=== PATIENT | female | born 1950 | race Caucasian/White ===

== ENCOUNTER 2018-11-12 05:06 | Emergency (ER) | payer MEDICARE, OTHER ==
[~2018-11-12] VITALS: Ht 160 cm; Wt 68.0 kg
[~2018-11-12 05:06] MED LIST: ESTRACE0.5 MG PO
--- OUTSIDE RECORDS SUMMARY | 2018-11-12 05:09 | XMS REPORT | Clinical Summary ---
Author Author [facility] Address Unknown Phone Unavailable Care Team Providers Care Continuous Drier Helper Name Role Phone Roberto Hardy MD PCP Allergies No Known Allergies Medications Not on file Active Problems Not on file Encounters Care Team Description Date Type Specialty Amparo Rose MD Visit for screening mammogram 01/09/2018 Hospital Encounter Amparo Rose MD Visit for screening mammogram (Primary Dx) 01/02/2018 Outside Orders Central Scheduling after 11/11/2017 Social History Date Tobacco Use Types Packs/Day Years Used Never Assessed Sex Assigned at Date Recorded Not on file Industry Job Start Date Occupation Not on file Not on file Not on file Travel End Travel History Travel Start No recent travel history available. Last Filed Vital Signs Not on file Plan of Treatment Not on file Procedures Comments Procedure Name Priority Date/Time Associated Diagnosis MM DIGITAL MAMMO SCREEN Routine 01/09/2018 IMPLANT BILAT 11:26 AM CDT after 11/11/2017 Results * MM digital mammo screen implant bilat (01/09/2018 11:26 AM CDT) Specimen Narrative Performed At RIS #[id number] - MM, DIGITAL, MAMMO, SCREENING, IMPLANT, BILATERAL INCLUDING CAD BILATERAL DIGITAL SCREENING MAMMOGRAM WITH CAD WITH AUGMENTATION: 01/09/2018 Comparison is made to exams dated:12/03/2016 mammogram - [facility], 01/21/2014 mammogram, and 02/01/2014 mammogram. There are scattered fibroglandular elements in both breasts that could obscure a lesion on mammography. Current study was also evaluated with a Computer Aided Detection (CAD) system. There are bilateral retroglandular silicone implants which may obscure pathology. No significant masses, calcifications, or other findings are seen in either breast. There has been no significant interval change. IMPRESSION: BENIGN There is no mammographic evidence of malignancy. A 1 year screening mammogram is recommended.The exam was reviewed by a staff physician. madeline Campbell M.D./:01/09/2018 13:57:06 Normal Exam Mammogram BI-RADS: 2 Benign G0202 Procedure Note Interface, External Ris In - 01/09/2018 3:30 PM CDT #[id number] - MM, DIGITAL, MAMMO, SCREENING, IMPLANT, BILATERAL INCLUDING CAD BILATERAL DIGITAL SCREENING MAMMOGRAM WITH CAD WITH AUGMENTATION: 01/09/2018 Comparison is made to exams dated: 12/03/2016 mammogram - [facility], 01/21/2014 mammogram, and 02/01/2014 mammogram. There are scattered fibroglandular elements in both breasts that could obscure a lesion on mammography. Current study was also evaluated with a Computer Aided Detection (CAD) system. There are bilateral retroglandular silicone implants which may obscure pathology. No significant masses, calcifications, or other findings are seen in either breast. There has been no significant interval change. IMPRESSION: BENIGN There is no mammographic evidence of malignancy. A 1 year screening mammogram is recommended. The exam was reviewed by a staff physician. madeline Green M.D., M.D./:01/09/2018 13:57:06 Normal Exam Mammogram BI-RADS: 2 Benign G0202 Performing Organization Address City/State/Zipcode Phone Number [facility] after 11/11/2017 Insurance Payer Benefit Subscriber ID Type Phone Address Plan / Group HUMANA - MEDICARE MGD HUMANA xxxxxxxxx Maps CARE MEDICARE Contracted ADV
--- OUTSIDE RECORDS SUMMARY | 2018-11-12 05:09 | XMS REPORT ---
Author Author [facility] Address Unknown Phone Unavailable Care Team Providers Care Household Worker Name Role Phone PATRICE RUIZ Unavailable Unavailable Problems This patient has no known problems. Allergies, Adverse Reactions, Alerts This patient has no known allergies or adverse reactions. Medications This patient has no known medications. Results Test Description Test Time Test Comments Text Results Atomic Results Result Comments MM, DIGITAL, MAMMO, SCREENING, IMPLANT, BILATERAL INCLUDING CAD 2018-01-09 13:57:00 Reason for Exam:->Z12.31 #[id number] - MM, DIGITAL, MAMMO, SCREENING, IMPLANT, BILATERAL INCLUDING CADBILATERAL DIGITAL SCREENING MAMMOGRAM WITH CAD WITH AUGMENTATION: 01/09/2018Comparison is made to exams dated: 12/03/2016 [facility], 01/21/2014 mammogram, and 02/01/2014 mammogram. There are scattered fibroglandular elements in both breasts that could obscure a lesion on mammography. Current study was also evaluated with a Computer Aided Detection (CAD) system. There are bilateral retroglandular silicone implants which may obscure pathology. No significant masses, calcifications, or other findings are seen in either breast. There has been no significant interval change. IMPRESSION: BENIGNThere is no mammographic evidence of malignancy. A 1 year screening mammogram is recommended. The exam was reviewed by a staff physician. Raji Mckinney M.D.[facility],dwd/:01/09/2018 13:57:06 Normal Exam Mammogram BI-RADS: 2 Benign G0202 -CREATININE 2016-12-14 13:43:00 POC-CREATININE (BEAKER) (test rwpv=[id number]) 0.5 mg/dL 0.6-1.3 TESTED AT [facility] [address] [facility] [id number] POC-EGFR (CORRINE) (test vkiy=[id number]) 124 mL/min/1.73M2
--- OUTSIDE RECORDS SUMMARY | 2018-11-12 05:09 | XMS REPORT | Clinical Summary ---
Author Author [facility] Address Unknown Phone Unavailable Care Team Providers Care Transcript Clerk Name Role Phone Roberto Hardy MD PCP Allergies Comments Active Allergy Reactions Severity Noted Date Morphine 02/17/2018 Sulfamethoxazole 02/17/2018 Medications End Date Status Medication Sig Dispensed Refills Start Date Active estradiol (ESTRACE) 1 MG Take 1 mg by 0 tablet mouth. 2 Active ciprofloxacin-dexamethaso Ciprodex 0.3 0 ne (CIPRODEX) 0.3-0.1 % %-0.1 % ear otic suspension drops,suspens ion Active Problems Not on file Encounters Care Team Description Date Type Specialty Wong Padilla MD 03/03/2018 Telephone Gastroenterology Wong Padilla MD Abnormal CT scan, gastrointestinal tract 03/01/2018 Hospital Radiology Encounter Mimi Espinoza MA 02/28/2018 Telephone Gastroenterology Wong Padilla MD 02/24/2018 Telephone Gastroenterology Mimi Espinoza MA 02/24/2018 Telephone Gastroenterology Wong Padilla MD Abnormal CT scan, gastrointestinal tract (Primary Dx) 02/17/2018 Office Visit Gastroenterology Mimi Espinoza MA 01/31/2018 Telephone Gastroenterology Wong Padilla MD 01/31/2018 Telephone Gastroenterology Mimi Espinoza MA 01/29/2018 Telephone Gastroenterology Mimi Espinoza MA 01/23/2018 Telephone Gastroenterology Wong Padilla MD 01/21/2018 Telephone Gastroenterology after 11/11/2017 Family History Medical History Relation Name Comments Lymphoma Father Prostate cancer Father Relation Name Status Comments Father Social History Date Tobacco Use Types Packs/Day Years Used Never Smoker Smokeless Tobacco: Never Used Alcohol Use Drinks/Week oz/Week Comments No Sex Assigned at Date Recorded Not on file Industry Job Start Date Occupation Not on file Not on file Not on file Travel End Travel History Travel Start No recent travel history available. Last Filed Vital Signs Time Taken Vital Sign Reading 02/17/2018 3:55 PM CDT Blood Pressure 145/81 02/17/2018 3:55 PM CDT Pulse 74 02/17/2018 3:55 PM CDT Temperature 36.9 C (98.4 F) - Respiratory Rate - - Oxygen Saturation - - Inhaled Oxygen - Concentration 02/17/2018 3:55 PM CDT Weight 68.5 kg (151 lb) 02/17/2018 3:55 PM CDT Height 160 cm (5' 3") 02/17/2018 3:55 PM CDT Body Mass Index 26.75 Plan of Treatment Care Team Description Date Type Specialty Milton Mccall MD [address] [facility] [address] [place] [id number] 12/25/2018 Office Visit Orthopedic Surgery Health Maintenance Due Date Last Done Comments COLON CANCER SCREENING 12/16/2001 SHINGLES VACCINES (#1) 12/16/2001 BREAST CANCER SCREENING 02/02/2016 02/01/2014, 01/21/2014, 07/17/2012, Additional history exists 65+ PNEUMOCOCCAL VACCINE 12/16/2016 (1 of 2 - PCV13) PNEUMOCOCCAL 12/16/2016 POLYSACCHARIDE VACCINE AGE 65 AND OVER INFLUENZA VACCINE 01/08/2019 Procedures Comments Procedure Name Priority Date/Time Associated Diagnosis MRI PELVIS W WO CONTRAST Routine 03/01/[address] scan, 5:54 PM CDT gastrointestinal tract POC CREATININE Routine 03/01/2018 5:20 PM CDT ESTIMATED GFR Routine 03/01/2018 5:20 PM CDT after 11/11/2017 Results * MRI Pelvis W Wo Contrast (03/01/2018 5:54 PM CDT) Specimen Narrative Performed At EXAMINATION:MRI PELVIS W WO CONTRAST [facility] CLINICAL HISTORY:R93.3 Abnormal findings on diagnostic imaging of other parts of digestive tract, small cystic lesion in pelvisadjacent to colon TECHNIQUE: Multiplanar multisequence MR images of the pelvis were obtained pre- and post intravenous administration of Gadolinium. COMPARISON:None. FINDINGS: The cervix measures 2.9 x 2.4 x 3.4 cm. Patient appears status post partial hysterectomy. Adjacent to the cervix are several cysts which emanate from the cervix. The largest is 3.1 x 2.9 cm. At the superior most portion of this larger cyst is a small enhancing nodule measuring 7 mm. This indicates a mild complexity. This nodule demonstrates enhancement on post gadolinium images. This raises concern for neoplastic cause of this cyst. Throughout this cyst, there is bright signal on T1 weighted precontrast images suggesting hemorrhage. Some layering hemorrhage is also seen. W hile the cyst could be an atypical cervical nabothian cyst, other cysts including cystic adnexal/ovarian origin with neoplastic transformation cannot be excluded. The ovaries are not definitely seen. IMPRESSION: Right pelvic cystic structure enhancing nodularity for which malignant neoplastic cause is not excluded. Please see above report in full. [facility]-[id number] Procedure Note Interface, Radiology Results 03/02/2018 1:54 PM CDT EXAMINATION: MRI PELVIS W WO CONTRAST CLINICAL HISTORY: R93.3 Abnormal findings on diagnostic imaging of other parts of digestive tract, small cystic lesion in pelvis adjacent to colon TECHNIQUE: Multiplanar multisequence MR images of the pelvis were obtained pre- and post intravenous administration of Gadolinium. COMPARISON: None. FINDINGS: The cervix measures 2.9 x 2.4 x 3.4 cm. Patient appears status post partial hysterectomy. Adjacent to the cervix are several cysts which emanate from the cervix. The largest is 3.1 x 2.9 cm. At the superior most portion of this larger cyst is a small enhancing nodule measuring 7 mm. This indicates a mild complexity. This nodule demonstrates enhancement on post gadolinium images. This raises concern for neoplastic cause of this cyst. Throughout this cyst, there is bright signal on T1 weighted precontrast images suggesting hemorrhage. Some layering hemorrhage is also seen. While the cyst could be an atypical cervical nabothian cyst, other cysts including cystic adnexal/ovarian origin with neoplastic transformation cannot be excluded. The ovaries are not definitely seen. IMPRESSION: Right pelvic cystic structure enhancing nodularity for which malignant neoplastic cause is not excluded. Please see above report in full. [facility]-[id number] Performing Organization Address City/State/Zipcode Phone Number [facility] [address] [place] [address] * Estimated GFR (03/01/2018 5:20 PM CDT) Pathologist [facility] Estimated GFR >=90 mL/min/1.73 m2 [facility] Comment: [facility] PATH[facility] AND rpretation GENOMIC G1 MEDICINE >=90 Normal or high G2 60-89Mildly decreased F5n01-86 Mildly to moderately decreased V8u78-69 Moderately to severely decreased G4 15-29Severely decreased G5 <15Kidney failure The eGFR was calculated using the Chronic Kidney Disease Epidemiology Collaboration (CKD-EPI) equation. Interpretation is based on recommendations of the National Kidney Foundation-Kidney Disease Outcomes Quality Initiative (NKF-KDOQI) published in 2014. Specimen Blood Performing Organization Address City/[facility]/Zipcode Phone Number [facility] DEPARTMENT [phone] [place] [address] [place] [address] PATHOLOGY AND GENOMIC MEDICINE * POC creatinine (03/01/2018 5:20 PM CDT) [facility] POC creatinine 0.6Comment: Test performed by 0.5 - 0.9 mg/dl [facility] [id number] DEPARTMENT OF PATHOLOGY AND GENOMIC MEDICINE Specimen Blood Performing Organization Address City/[facility]/Zipcode Phone Number [facility] DEPARTMENT OF [address] [place] [address] [place] [address] PATHOLOGY AND GENOMIC MEDICINE after 11/11/2017 Insurance Type Payer Benefit Subscriber ID Effective Phone Address Plan / Dates Group PPO HUMANA MEDICARE HUMANA xxxxxxxxx 2017-P MEDICARE resent PPO/PFFS/E [facility] Advance Directives Patient has advance care planning documents on file. For more information, liseth e contact: Augie Frankel [address] [place] [address]
[2018-11-12] MEDS ORDERED: ONDANSETRON HCL INJ 2MG/ML 2ML 2 MG/ML VIAL IV STA (05:34)
[2018-11-12] MEDS ORDERED: PANTOPRAZOLE 40 MG 10ML VIAL IV STA (05:34)
[2018-11-12] MEDS ORDERED: DICYCLOMINE HCL 20 MG/2 ML VIAL IM ONE (05:45)
[2018-11-12 06:46] LABS: BASOPHILS % 0.5 % (0.0-1.0); EOSINOPHILS # (AUTO) 0.1 (0.0-0.4); EOSINOPHILS % 1.1 % (0.0-6.0); HEMATOCRIT 42.4 % (34.2-44.1); HEMOGLOBIN 14.6 g/dL (12.0-16.0); LYMPHOCYTES # (AUTO) 1.6 (1.0-3.2); LYMPHOCYTES % 27.7 % (18.0-39.1); MEAN CORPUSCULAR HEMOGLOBIN 33.3 pg (28-32); MEAN CORPUSCULAR HGB CONC 34.4 g/dL (31-35); MEAN CORPUSCULAR VOLUME 96.6 fL (81-99); MONOCYTES # (AUTO) 0.5 (0.2-0.8); MONOCYTES % 9.1 % (4.4-11.3); NEUTROPHILS # (AUTO) 3.5 (2.1-6.9); NEUTROPHILS % 61.2 % (38.7-80.0); PLATELET COUNT 267 x10e3/uL (140-360); RED BLOOD COUNT 4.39 x10e6/uL (3.6-5.1); RED CELL DISTRIBUTION WIDTH 13.4 % (11.7-14.4)
--- NOTE | 2018-11-12 06:49 | Diagnostic Imaging Report ---
EXAM: 4 radiographs INDICATION: ^abd pain ^[id number] ^[id number] ^Y COMPARISON: None FINDINGS: Nonobstructive bowel gas pattern. Mild gaseous distention of colon. No signs of pneumoperitoneum. No calcification overlying renal shadows. Pelvic phleboliths. No acute osseous abnormality. Degenerative changes of lower lumbar spine. Clear lungs. IMPRESSION: 1. Nonobstructive bowel gas pattern. Signed by: Dr. Andre Kerr MD on 11/12/2018 6:46 AM
[2018-11-12 06:50] LABS: BILIRUBIN,URINE NEGATIVE (NEGATIVE); CLARITY,URINE CLEAR (CLEAR); COLOR,URINE YELLOW (YELLOW); KETONES,URINE NEGATIVE (NEGATIVE); LEUKOCYTE ESTERASE ,URINE NEGATIVE (NEGATIVE); NITRITE,URINE NEGATIVE (NEGATIVE); PROTEIN,URINE DIPSTICK NEGATIVE (NEGATIVE); URINE UROBILINOGEN 0.2 mg/dL (0.2 - 1)
--- NOTE | 2018-11-12 06:58 | NUR ---
report given to krystle juarez
[2018-11-12 07:05] LABS: EPITHELIAL CELLS,URINE FEW /LPF; RBC,URINE 0-5 /HPF (0-5); TRANSITIONAL EPI CELLS,URINE RARE
[2018-11-12 07:07] LABS: ALANINE AMINOTRANSFERASE 13 IU/L (0-55); ALBUMIN 3.8 g/dL (3.5-5.0); ALBUMIN/GLOBULIN RATIO 1.2 (0.8-2.0); ALKALINE PHOSPHATASE 81 IU/L (40-150); AMYLASE 49 U/L (25-125); ANION GAP 10.4 mmol/L (8-16); BLOOD UREA NITROGEN 9 mg/dL (7-26); BUN/CREATININE RATIO 14 (6-25); CALCIUM 9.5 mg/dL (8.4-10.2); CARBON DIOXIDE 29 mmol/L (22-29); CHLORIDE 101 mmol/L (98-107); CREATINE KINASE 68 IU/L (29-168); CREATININE, SERUM 0.64 mg/dL (0.57-1.11); EST GLOMERULAR FILTRATION RATE > 60 ML/MIN (60-); GLUCOSE 95 mg/dL (74-118); LIPASE 9 U/L (8-78); POTASSIUM 3.4 mmol/L (3.5-5.1); SODIUM 137 mmol/L (136-145)
--- NOTE | 2018-11-12 07:49 | Diagnostic Imaging Report ---
EXAMINATION: Right upper quadrant ultrasound CLINICAL INDICATION: Right upper quadrant pain COMPARISON: None DISCUSSION: Transverse and longitudinal images of the right upper quadrant were obtained. The liver is normal in size measuring 13.3centimeters in length in the right midclavicular line and shows normal echogenicity. No focal masses are seen in the liver. There is no intrahepatic biliary dilatation. The common bile duct measures 0.1 cm in caliber.. The main portal vein is normal in caliber and measures 1.0 cm with normal hepatopetal flow. Minimal echogenic sludge in the dependent portion of the gallbladder. The gallbladder is otherwise normal in appearance without stones, wall thickening or pericholecystic fluid. The sonographic Jackson's sign is reported as negative. The visualized portions of the pancreatic body and tail are unremarkable. The right kidney measures 11.3 centimeters in length. There is normal renal cortical echogenicity and no hydronephrosis, mass or shadowing calculi. Abdominal aorta is nonaneurysmal. IVC is patent. No free fluid is seen. IMPRESSION: Small amount of echogenic sludge in the dependent gallbladder. No cholelithiasis or sonographic findings of acute cholecystitis. Signed by: Dr. Juan Matias M.D. on 11/12/2018 7:46 AM
[2018-11-12 08:37] VITALS: BP 113/71
== END 2018-11-12 08:46 | disposition home or self-care (01) ==
LOC: ER 05:06
DX: K80.50 Calculus of bile duct without cholangitis or cholecystitis without obstruction (principal); R10.11 Right upper quadrant pain; R10.13 Epigastric pain; Z88.1 Allergy status to other antibiotic agents; Z88.5 Allergy status to narcotic agent; Z88.2 Allergy status to sulfonamides
CPT/HCPCS: 36415; 74022; 76705; 80053; 81001; 82150; 82550; 82553; 83690; 84484; 85025; 93005; 99284; C9113; J0500; J2405

== ENCOUNTER → 2018-11-14 | Outpatient (CLI) | payer MEDICARE ==
[~2018-11-14] MED LIST changes: +IOPAMIDOL 370 MG/ML 200 ML INFUS..BTL INJ ONE; +SODIUM CHLORIDE 0.9% 50ML 50 ML ONE
--- NOTE | 2018-11-14 16:33 | Diagnostic Imaging Report ---
EXAM: CT ABDOMEN AND PELVIS with IV CONTRAST DATE: 11/14/2018 Time stamp on Exam: 12:54 PM INDICATION: Abdominal pain COMPARISON: None TECHNIQUE: The abdomen and pelvis were scanned using a multidetector helical scanner. Coronal and sagittal reformations were obtained. Routine protocol performed. Technique modification was utilized to maintain the lowest dose to the patient. IV Contrast: 100 cc of Isovue-370 Oral Contrast: Water Radiation Dose: Total DLP 347.25 mGy*cm Estimated effective dose: DLP x 0.015 x size factor FINDINGS: LOWER THORAX: No consolidations. Scarring in the middle lobe and left lower lobe. LIVER: No masses BILIARY: The gallbladder is unremarkable. No ductal dilatation. SPLEEN: No masses PANCREAS: No masses ADRENALS: No nodules KIDNEYS: Symmetric perfusion. No enhancing masses. No hydronephrosis. Left peripelvic cysts. GI TRACT: No distention, wall thickening or evidence of obstruction. VESSELS: Unremarkable PERITONEUM/RETROPERITONEUM: No free air or fluid LYMPH NODES: No lymphadenopathy PELVIS: There is a cystic mass measuring 6.1 x 7.5 cm anterior to the rectum. This mass effaces the rectum and has some nodularity of the wall. Patient states that she has had a hysterectomy and ovaries removed. Further evaluation with an MRI of the pelvis may be of benefit. BLADDER: Small capacity bladder anterior to the mass in the pelvis. SOFT TISSUES: Unremarkable BONES: Degenerative changes of the spine with disc space narrowing at L5-S1. IMPRESSION: Cystic mass in the pelvis of uncertain etiology. Signed by: Dr. Hung Conway DO on 11/14/2018 4:30 PM
== END ==
LOC: CT 11:36
PROVIDERS: ATTEND Surgery
DX: R10.9 Unspecified abdominal pain (principal)
CPT/HCPCS: 74177; Q9967